=== PATIENT | female | born 1980 | race Caucasian/White ===

== ENCOUNTER 2024-06-30 16:31 | Outpatient (REF) | payer MEDICAID, SELFPAY | END 2024-06-30 16:32 | disposition home or self-care (01) | LOC: LBN 16:31 | PROVIDERS: Visit Provider Physician Assistant Medical | DX: J02.9 Acute pharyngitis, unspecified (principal) | CPT/HCPCS: 87077; 87070 ==

== ENCOUNTER 2025-01-06 08:49 | Outpatient (REF) | payer MEDICAID, SELFPAY ==
--- NOTE | 2025-01-06 08:15 | PAPFT_PTH ---
PATIENT: Bria Bobby LOC: [facility] U#:[id number] AGE/SX: 44/F ROOM: RE01/06/[address]: Agnieszka Orourke : 1980 BED: DIS: 01/06/2025 SPEC #: [id number] RECD: 01/06/25 16:31 STATUS: LATASHA REElda #: [id number] ELIZABETH: 01/06/25 08:[address]: Agnieszka Orourke DEPT: [facility] Cytology RECD BY: Jigna Doyle Tissues: 1 - CX/ENDOCX FOR PAP SMEARS Procedures: PAP THIN PREP/[facility] Screening HPV DNA PROBE Comments: [id number] (HPV 16 & 18/45)
== END 2025-01-06 08:50 | disposition home or self-care (01) ==
LOC: NCHCN 08:49
PROVIDERS: PCP Nurse Practitioner Family; Visit Provider Nurse Practitioner Family
DX: Z12.4 Encounter for screening for malignant neoplasm of cervix (principal)
CPT/HCPCS: 88142; 87624